=== PATIENT | female | born 1940 | race Caucasian/White ===

== ENCOUNTER → 2017-12-21 | Outpatient (CLI) | payer MEDICARE ==
[~2017-12-21] MED LIST: ALBU90OI INH; AMLO5 PO; AMOX500 PO; ASPI81CH PO; ASPI81EC PO; ATOR20 PO; CALMAGZIN PO; CEPH500 PO; CETI10 PO; CHOL10002; CODACE30 PO; ERYT.5TO OS; HYDACE5325 PO; HYDCHL12.5 PO; LAVAP17G PO; MULVITMIND PO; Mobic7.5 MG PO; Norco 5-325 Ta1 EACH PO; OXYACE5T PO; POTA10T PO; RXHYD5325 PO; SULTRIDS PO; Zithromax250 MG PO
== END ==
LOC: LAB SRC 09:36 → LAB SHORT 09:36
DX: E87.6 Hypokalemia (principal)
CPT/HCPCS: 84133

== ENCOUNTER 2018-01-26 07:51 | Emergency (ER) | payer MEDICARE ==
[~2018-01-26] VITALS: Ht 147.3 cm; Wt 54.4 kg
[2018-01-26] MEDS ORDERED: SPIR25 PO (08:08)
[2018-01-26] MEDS ORDERED: ALEN70 PO (08:09)
[2018-01-26] MEDS ORDERED: POLYETHYLENE G255 GM PO (08:11)
[2018-01-26] MEDS ORDERED: Norco 5-325 Ta1 EACH PO (08:45)
== END 2018-01-26 09:30 | disposition home or self-care (01) ==
LOC: ER 07:51
DX: S42.102A Fracture of unspecified part of scapula, left shoulder, initial encounter for closed fracture (principal); I10 Essential (primary) hypertension; Z79.899 Other long term (current) drug therapy; Z79.82 Long term (current) use of aspirin; Z87.891 Personal history of nicotine dependence; W19.XXXA Unspecified fall, initial encounter
CPT/HCPCS: 29105; 73030; 99284-25

== ENCOUNTER 2018-08-07 10:31 | Day surgery (SDC) | payer MEDICARE ==
[~2018-08-07] VITALS: Ht 142.2 cm; Wt 53.2 kg
[~2018-08-07 10:31] MED LIST changes: +(None)15 G1; +ALEN70 PO; +CHOL10002 PO; +Calcium-Magnes1 EAC6 PO; +FLONASE ALLERG9.9 ML; +POLYETHYLENE G255 GM PO; +SPIR25 PO; +ZYRTEC10 M1 PO
--- NOTE | 2018-08-07 12:06 | NUR ---
08/07/[address] NOTIFIED THAT PT. HAD VERBALIZED THAT HER LAST PREP SHE TOOK WAS YESTERDAY & FINISHED IT BY 1800 WITH INCLUSION OF HER WATER. PT. VERBALIZED THAT SHE WAS ALL CLEAR YESTERDAY SO DIDN'T DO OTHER PREP. PT. HAD VERBALIZED THAT THERE WAS TOO MUCH POWDER TO DRINK.
--- NOTE | 2018-08-07 16:12 | NUR ---
08/07/18 1612 Olivia Red PROCEDURE STARTED 1223 UNABLE TO ADVANCE SCOPE PROCEDURE STOPPED 1242 SCOPE CHANGED TO UPPER SCOPE (BLACK/YELLOW) AND RESTART 1246 CECUM WAS REACHED AT 1305 CASE ENDED AT 1310
== END 2018-08-07 13:40 | disposition home or self-care (01) ==
LOC: ORSCSDS 10:31
PROVIDERS: Internal Medicine Gastroenterology
PROC: 0DJD8ZZ Inspection of Lower Intestinal Tract, Via Natural or Artificial Opening Endoscopic (ICD-10-PCS; principal; 2018-08-07 11:45)
DX: D50.9 Iron deficiency anemia, unspecified (principal); K64.8 Other hemorrhoids; I10 Essential (primary) hypertension; Z79.82 Long term (current) use of aspirin; Z79.899 Other long term (current) drug therapy; Z87.891 Personal history of nicotine dependence
CPT/HCPCS: J2405; J7120

== ENCOUNTER 2018-10-09 07:52 | Day surgery (SDC) | payer MEDICARE, OTHER ==
[~2018-10-09] VITALS: Ht 142.2 cm; Wt 55.0 kg
== END 2018-10-09 10:00 | disposition home or self-care (01) ==
LOC: ORSCSDS 07:52
PROVIDERS: Internal Medicine Gastroenterology
PROC: 0DB68ZX Excision of Stomach, Via Natural or Artificial Opening Endoscopic, Diagnostic (ICD-10-PCS; principal; 2018-10-09 09:00)
PROC: 0DB98ZX Excision of Duodenum, Via Natural or Artificial Opening Endoscopic, Diagnostic (ICD-10-PCS; principal; 2018-10-09 09:00)
DX: D50.9 Iron deficiency anemia, unspecified (principal); K29.80 Duodenitis without bleeding; K20.9 Esophagitis, unspecified; K25.9 Gastric ulcer, unspecified as acute or chronic, without hemorrhage or perforation; K44.9 Diaphragmatic hernia without obstruction or gangrene; I10 Essential (primary) hypertension; J44.9 Chronic obstructive pulmonary disease, unspecified; Z83.71 Family history of colonic polyps; Z87.891 Personal history of nicotine dependence; Z79.82 Long term (current) use of aspirin; Z79.899 Other long term (current) drug therapy
CPT/HCPCS: J2704; J7120

== ENCOUNTER 2019-01-01 09:51 | Day surgery (SDC) | payer MEDICARE, OTHER ==
[~2019-01-01] VITALS: Ht 142.2 cm; Wt 121.0 kg
[2019-01-01] MEDS ORDERED: ATOR10 PO (10:43)
[2019-01-01] MEDS ORDERED: SPIR25 PO (10:43)
--- NOTE | 2019-01-01 10:49 | NUR ---
01/01/19 Susie9 Kina Gold ON THE MONITOR, PT UNSYPTOMATIC. STRIP PRINTED, MD MENENDEZ NOTIFIED. BMP DRAWN PRE PROCEDURE, EKG DONE. WILL NOTIFY MD SCHAFFER OF EKG AND STRIPS PRINTED.
[2019-01-01 10:58] LABS: Anion Gap 7 mmol/L (6-16); Blood Urea Nitrogen 14 mg/dL (8-24); Bun/Creatinine Ratio 20.7 (12.0-20.0); CO2, Blood 24 mmol/L (21-32); Chloride, Blood 106 mmol/L (98-108); Creatinine, Blood 0.68 mg/dL (0.40-1.00); Glomerular Filtration Rate >60 (60-); Glucose, Blood 89 mg/dL (70-99); Potassium, Blood 4.5 mmol/L (3.5-5.5); Sodium, Blood 137 mmol/L (136-145)
== END 2019-01-01 11:55 | disposition home or self-care (01) ==
LOC: ORSCSDS 09:51
PROVIDERS: Internal Medicine Gastroenterology
PROC: 0DB58ZX Excision of Esophagus, Via Natural or Artificial Opening Endoscopic, Diagnostic (ICD-10-PCS; principal; 2019-01-01 11:00)
DX: K22.70 Barrett's esophagus without dysplasia (principal); D50.9 Iron deficiency anemia, unspecified; Z87.11 Personal history of peptic ulcer disease; K29.80 Duodenitis without bleeding; K44.9 Diaphragmatic hernia without obstruction or gangrene; J44.9 Chronic obstructive pulmonary disease, unspecified; I10 Essential (primary) hypertension; E87.6 Hypokalemia; Z87.891 Personal history of nicotine dependence; Z79.82 Long term (current) use of aspirin; Z79.899 Other long term (current) drug therapy
CPT/HCPCS: 80048; 88305; 93005; 93010; J2704; J7120

== ENCOUNTER 2019-07-02 11:59 | Emergency (ER) | payer MEDICARE, OTHER ==
[~2019-07-02] VITALS: Ht 137.2 cm; Wt 55.3 kg
[~2019-07-02 11:59] MED LIST changes: +ATOR10 PO
== END 2019-07-02 14:44 | disposition home or self-care (01) ==
LOC: ER 11:59
DX: S32.039A Unspecified fracture of third lumbar vertebra, initial encounter for closed fracture (principal); I10 Essential (primary) hypertension; E78.5 Hyperlipidemia, unspecified; Z79.899 Other long term (current) drug therapy; Z79.82 Long term (current) use of aspirin; Z87.891 Personal history of nicotine dependence; W01.0XXA Fall on same level from slipping, tripping and stumbling without subsequent striking against object, initial encounter; Y92.002 Bathroom of unspecified non-institutional (private) residence as the place of occurrence of the external cause
CPT/HCPCS: 72100; 99283-25

== ENCOUNTER → 2019-10-29 | Outpatient (CLI) | payer MEDICARE, OTHER ==
[2019-11-04 13:40] LABS: Stool Occult Bld Immuno 1 Negative (NEGATIVE)
== END | disposition home or self-care (01) ==
LOC: LAB 20:00 → LAB SHORT 20:00
PROVIDERS: Nurse Practitioner Family
DX: D50.9 Iron deficiency anemia, unspecified (principal)
CPT/HCPCS: G0328

== ENCOUNTER 2020-11-15 07:09 | Day surgery (SDC) | payer MEDICARE, SELFPAY ==
[~2020-11-15] VITALS: Ht 139.7 cm; Wt 56.7 kg
[~2020-11-15 07:09] MED LIST changes: +Amlodipine Bes2.5 MG PO; +FAMO20 PO; +LOSA25 PO
[2020-11-15] MEDS ORDERED: OMEP20ER (07:22)
--- NOTE | 2020-11-15 07:34 | NUR ---
11/15/20 0734 Grazyna Salomon 1 TRY RIGHT HAND BLEW, BRUISES VERY EASILY, SECOND TRY RIGHT WRIST BRUISED INSTANTLY, RUNS GREAT
== END 2020-11-15 09:15 | disposition home or self-care (01) ==
LOC: ORSCSDS 07:09
PROVIDERS: Internal Medicine Gastroenterology
PROC: 0DB68ZX Excision of Stomach, Via Natural or Artificial Opening Endoscopic, Diagnostic (ICD-10-PCS; principal; 2020-11-15 08:30)
PROC: 0DB58ZX Excision of Esophagus, Via Natural or Artificial Opening Endoscopic, Diagnostic (ICD-10-PCS; principal; 2020-11-15 08:30)
PROC: 0DB98ZX Excision of Duodenum, Via Natural or Artificial Opening Endoscopic, Diagnostic (ICD-10-PCS; principal; 2020-11-15 08:30)
DX: D50.9 Iron deficiency anemia, unspecified (principal); K20.90 Esophagitis, unspecified without bleeding; K22.70 Barrett's esophagus without dysplasia; K44.9 Diaphragmatic hernia without obstruction or gangrene; K29.70 Gastritis, unspecified, without bleeding; E78.5 Hyperlipidemia, unspecified; I10 Essential (primary) hypertension; E66.9 Obesity, unspecified; Z68.31 Body mass index [BMI] 31.0-31.9, adult; Z79.82 Long term (current) use of aspirin; Z87.891 Personal history of nicotine dependence; Z79.899 Other long term (current) drug therapy
CPT/HCPCS: 88305; 88342; J0330; J0461; J2405; J2704; J7120

== ENCOUNTER 2023-12-19 08:18 | Day surgery (SDC) | payer OTHER ==
[~2023-12-19] VITALS: Ht 137.2 cm; Wt 50.4 kg
[~2023-12-19 08:18] MED LIST changes: +Balanced Salt Epinephrine Irrigation Solution 500 mL IR SCH; +Lidocaine HCl/Pf 1% 5 ML VIAL XX SCH; +Moxifloxacin HCL 0.5 MG/0.1 ML 0.4MLSYR RIGHTEYE SCH; +NS 500 ML IV ONE; +OMEP20ER; +PHENYLEPHRINE\\TROPICAMIDE\\TETRACAINE OPHTHALMIC DILATING SOLN RIGHTEYE PRN; +Povidone-Iodine 450 DROP/30 ML Solution RIGHTEYE SCH; +Triamcinolone Inj Susp 40 MG / ML 1ML Vial INJ SCH; +Triamcinolone Inj Susp 40 MG / ML 1ML Vial ONE
[2023-12-19] MEDS ORDERED: NS 500 ML IV ONE (08:51)
--- NOTE | 2023-12-19 08:51 | NUR ---
12/19/23 0851 Jia Whatley AT 0835 PLEWENDIEET AT 0826
[2023-12-19] MEDS ORDERED: Midazolam HCl 1MG / ML 2ML Vial ONE (09:19)
[2023-12-19] MEDS ORDERED: FentaNYL Citrate 50 MCG/ML 2 ML Injection ONE (09:19)
[2023-12-19] MEDS ORDERED: Tetracaine HCl 0.5% Opth Soln 15 ml RIGHTEYE ONE (09:33)
[2023-12-19 09:44] VITALS: BP 122/71
== END 2023-12-19 09:59 | disposition home or self-care (01) ==
LOC: ORSCSDS 08:18
PROVIDERS: Ophthalmology
PROC: 08RJ3JZ Replacement of Right Lens with Synthetic Substitute, Percutaneous Approach (ICD-10-PCS; principal; 2023-12-19 09:30)
DX: H25.811 Combined forms of age-related cataract, right eye (principal); Z96.1 Presence of intraocular lens; Z87.891 Personal history of nicotine dependence; I10 Essential (primary) hypertension; J44.9 Chronic obstructive pulmonary disease, unspecified; Z79.899 Other long term (current) drug therapy
CPT/HCPCS: 82947; J2250; J3010; J3301; J7040; V2632

== ENCOUNTER 2024-05-24 15:54 | Observation (INO) | payer OTHER ==
[~2024-05-24] VITALS: Ht 152.4 cm; Wt 68.0 kg
[~2024-05-24 15:54] MED LIST changes: -Balanced Salt Epinephrine Irrigation Solution 500 mL IR SCH; -Lidocaine HCl/Pf 1% 5 ML VIAL XX SCH; -Moxifloxacin HCL 0.5 MG/0.1 ML 0.4MLSYR RIGHTEYE SCH; -NS 500 ML IV ONE; -PHENYLEPHRINE\\TROPICAMIDE\\TETRACAINE OPHTHALMIC DILATING SOLN RIGHTEYE PRN; -Povidone-Iodine 450 DROP/30 ML Solution RIGHTEYE SCH; -Triamcinolone Inj Susp 40 MG / ML 1ML Vial INJ SCH; -Triamcinolone Inj Susp 40 MG / ML 1ML Vial ONE
[2024-05-24 19:20] LABS: BASOPHILS ABSOLUTE AUTO 0.05 K/mm3 (0.00-0.23); BASOPHILS PERCENT AUTO 1 % (0-2); EOSINOPHILS ABSOLUTE AUTO 0.03 K/mm3 (0.00-0.68); EOSINOPHILS PERCENT AUTO 0 % (0-6); Hematocrit 42.3 % (33.0-51.0); Hemoglobin 13.7 g/dL (11.5-16.0); IMMATURE GRAN ABSOLUTE AUTO 0.04 K/mm3 (0.00-0.10); IMMATURE GRAN PERCENT AUTO 1 % (0-1); LYMPHOCYTES ABSOLUTE AUTO 0.97 K/mm3 (0.84-5.20); LYMPHOCYTES PERCENT AUTO 11 % (21-46); MONOCYTES PERCENT AUTO 7 % (4-13); Mean Corpuscular HGB Conc 32.4 g/dL (31.5-36.5); Mean Corpuscular Volume 87 fL (80-100); Mean Platelet Volume 9.9 fL (9.1-12.4); NEUTROPHILS ABSOLUTE AUTO 7.08 K/mm3 (1.96-9.15); NEUTROPHILS PERCENT AUTO 81 % (41-73); Platelet Count 317 K/mm3 (150-400); RDW Coefficient Variation 13.7 % (11.7-14.2); RDW Standard Deviation 42.9 fL (35.1-46.3); Red Blood Cell Count 4.89 M/mm3 (3.80-5.20); White Blood Cell Count 8.77 K/mm3 (4.00-11.30)
[2024-05-24 19:42] LABS: Albumin, Blood 3.6 g/dL (3.4-5.0); Albumin/Globulin Ratio 0.8 (0.8-1.8); Bilirubin, Total 0.6 mg/dL (0.1-1.0); Bun/Creatinine Ratio 22.3 (12.0-20.0); Calcium, Blood 9.1 mg/dL (8.5-10.1); Creatinine, Blood 0.72 mg/dL (0.40-1.00); Globulin, Blood 4.3 g/dL (2.2-4.0); Total Protein, Blood 7.9 g/dL (6.4-8.2)
[2024-05-24] MEDS ORDERED: Ondansetron HCl 2 MG / ML 2ML Vial IV PRN (20:45)
[2024-05-24] MEDS ORDERED: FLU VACC TS2024-25(6MOS UP)/PF 45 MCG/0.5 ML SYRINGE IM ONE (20:45)
[2024-05-24] MEDS ORDERED: Albuterol 2.5 MG/3 ML VIAL INH PRN (20:55)
[2024-05-24] MEDS ORDERED: Famotidine 20 MG Tab PO SCH (21:00)
[2024-05-24] MEDS ORDERED: ATOR20 PO (21:42)
[2024-05-24 21:53] VITALS: BP 167/79
[2024-05-24] MEDS ORDERED: OxyCODONE 5 mg/Acetamin 325 mg TABLET PO PRN (22:30)
--- NOTE | 2024-05-25 03:04 | NUR ---
SHIFT SUMMARY 84 YR F Admitted on 05/24/24. FULL CODE. PT IS A&O X 4 AND MOSTLY INDEPENDANT. SHE NEEDS A LITTLE HELP GETTING OUT OF BED DUE TO PAIN CAUSED BY RIB FX'S ON THE RIGHT SIDE. ONCE SHE IS UP SHE IS STEADY ON HER FEET W/ A FWW. SHE STATES SHE GETS LEG CRAMPS AT NIGHT AND THE ONLY THING THAT HELPS IS TO GET UP AND WALK AROUND THE BED. AN ORDER FOR PERCOCET WAS OBTAINED FOR PAIN AND APPEARS TO HAVE BEEN AFFECTIVE PT FELL ASLEEP SHORTLY AFTER TAKING IT AND HAS BEEN ASLEEP SINCE. PT CALLS APPROPRIATELY AND USES THE BEDSIDE COMODE. PLAN IS FOR MRI IN THE A.M. TO CHECK STATUS OF SMALL, RIGHT PNEUMOTHORAX. BED IN LOW POSITION AND CALL LIGHT IN REACH.
[2024-05-25 03:49] VITALS: BP 156/75
[2024-05-25] MEDS ORDERED: Spironolactone 25 MG Tab PO SCH (06:00)
[2024-05-25] MEDS ORDERED: Atorvastatin 10 MG Tab PO SCH (06:00)
[2024-05-25 07:26] VITALS: BP 154/96
[2024-05-25] MEDS ORDERED: Losartan Potassium 25 MG Tab PO SCH (09:00)
[2024-05-25] MEDS ORDERED: Fluticasone 0.05% Nasal Spray SCH (09:00)
[2024-05-25] MEDS ORDERED: Omeprazole 20 MG CapCR PO SCH (09:00)
[2024-05-25] MEDS ORDERED: AmLODIPine Besylate 5 MG Tab PO SCH (09:00)
[2024-05-25] MEDS ORDERED: Aspirin 81 MG Chew PO SCH (09:00)
[2024-05-25] MEDS ORDERED: Azithromycin 250 MG Tab PO ONE (10:05)
[2024-05-25] MEDS ORDERED: VISBIOME 112.51 EACH PO (12:15)
[2024-05-25] MEDS ORDERED: AZIT250 PO (12:15)
[2024-05-25] MEDS ORDERED: Percocet 5-3251 EACH PO (12:15)
--- NOTE | 2024-05-25 15:02 | NUR ---
DISCHARGE NOTE PT A&OX4 AND ANSWERS QUESTIONS APPROPRIATELY. PT PNEUMOTHORAX RESOLVED ENOUGH FOR D/C. PT VSS, NO COMPLAINTS OF CP/PRESSURE OR SOB. DISCHARGE ORDER OBTAINED, PT EDUCATED ON D/C EDUCATION AND VERBALIZES UNDERSTANDING. PT D/JUVENAL HOME VIA W/C. ALL PERSONAL ITEMS W/ PT AND OOR. PT DISCHARGED HOME.
== END 2024-05-25 14:47 | disposition home or self-care (01) ==
LOC: ER 15:54 → MEDS 15:55
PROVIDERS: Emergency Medicine; ADMIT Internal Medicine
DX: S27.0XXA Traumatic pneumothorax, initial encounter (principal); S22.41XA Multiple fractures of ribs, right side, initial encounter for closed fracture; W18.09XA Striking against other object with subsequent fall, initial encounter; J98.11 Atelectasis; R26.89 Other abnormalities of gait and mobility; I10 Essential (primary) hypertension; E78.5 Hyperlipidemia, unspecified; K21.9 Gastro-esophageal reflux disease without esophagitis; K44.9 Diaphragmatic hernia without obstruction or gangrene; M19.90 Unspecified osteoarthritis, unspecified site; Z87.891 Personal history of nicotine dependence; Z79.82 Long term (current) use of aspirin; Z79.899 Other long term (current) drug therapy
CPT/HCPCS: 71045; 71046; 71250; 80053; 84484; 85025; 93005; 93010; 99285-25; A9270; G0378

== ENCOUNTER 2024-07-18 10:46 | Emergency (ER) | payer OTHER ==
[~2024-07-18] VITALS: Ht 137.2 cm; Wt 49.4 kg
[~2024-07-18 10:46] MED LIST changes: +AZIT250 PO; +Percocet 5-3251 EACH PO; +VISBIOME 112.51 EACH PO
[2024-07-18 11:37] LABS: BASOPHILS ABSOLUTE AUTO 0.08 K/mm3 (0.00-0.23); BASOPHILS PERCENT AUTO 1 % (0-2); EOSINOPHILS ABSOLUTE AUTO 0.07 K/mm3 (0.00-0.68); EOSINOPHILS PERCENT AUTO 1 % (0-6); Hemoglobin 13.1 g/dL (11.5-16.0); IMMATURE GRAN ABSOLUTE AUTO 0.01 K/mm3 (0.00-0.10); IMMATURE GRAN PERCENT AUTO 0 % (0-1); LYMPHOCYTES ABSOLUTE AUTO 1.39 K/mm3 (0.84-5.20); LYMPHOCYTES PERCENT AUTO 17 % (21-46); MONOCYTES ABSOLUTE AUTO 0.71 K/mm3 (0.16-1.47); MONOCYTES PERCENT AUTO 9 % (4-13); Mean Corpuscular HGB 27.8 pg (26.0-34.0); Mean Corpuscular Volume 87 fL (80-100); Mean Platelet Volume 9.6 fL (9.1-12.4); NEUTROPHILS ABSOLUTE AUTO 5.96 K/mm3 (1.96-9.15); NEUTROPHILS PERCENT AUTO 73 % (41-73); Platelet Count 317 K/mm3 (150-400); RDW Coefficient Variation 15.6 % (11.7-14.2); RDW Standard Deviation 50.1 fL (35.1-46.3); Red Blood Cell Count 4.71 M/mm3 (3.80-5.20); White Blood Cell Count 8.22 K/mm3 (4.00-11.30)
[2024-07-18 12:06] LABS: Albumin, Blood 3.1 g/dL (3.4-5.0); Albumin/Globulin Ratio 0.7 (0.8-1.8); Bilirubin, Total 0.5 mg/dL (0.1-1.0); Bun/Creatinine Ratio 19.9 (12.0-20.0); Calcium, Blood 9.1 mg/dL (8.5-10.1); Creatinine, Blood 0.55 mg/dL (0.40-1.00); Globulin, Blood 4.4 g/dL (2.2-4.0); Potassium, Blood 4.1 mmol/L (3.5-5.5); Total Protein, Blood 7.5 g/dL (6.4-8.2)
[2024-07-18] MEDS ORDERED: Percocet 5-3251 EACH PO (13:11)
[2024-07-18 14:53] VITALS: BP 159/93
== END 2024-07-18 14:53 | disposition home or self-care (01) ==
LOC: ER 10:46
PROVIDERS: Student in an Organized Health Care Education/Training Program
DX: R07.81 Pleurodynia (principal); S42.201D Unspecified fracture of upper end of right humerus, subsequent encounter for fracture with routine healing; S22.41XD Multiple fractures of ribs, right side, subsequent encounter for fracture with routine healing; I10 Essential (primary) hypertension; Z87.891 Personal history of nicotine dependence; W19.XXXD Unspecified fall, subsequent encounter
CPT/HCPCS: 71046; 80053; 83880; 84484; 85025; 93005; 93010; 99284-25

== ENCOUNTER 2025-05-24 19:28 | Emergency (ER) | payer OTHER ==
[~2025-05-24] VITALS: Ht 137.2 cm; Wt 45.8 kg
[2025-05-24 20:12] LABS: BASOPHILS ABSOLUTE AUTO 0.10 K/mm3 (0.00-0.23); BASOPHILS PERCENT AUTO 1 % (0-2); EOSINOPHILS ABSOLUTE AUTO 0.20 K/mm3 (0.00-0.68); EOSINOPHILS PERCENT AUTO 2 % (0-6); Hematocrit 42.3 % (33.0-51.0); Hemoglobin 13.5 g/dL (11.5-16.0); IMMATURE GRAN ABSOLUTE AUTO 0.11 K/mm3 (0.00-0.10); IMMATURE GRAN PERCENT AUTO 1 % (0-1); LYMPHOCYTES ABSOLUTE AUTO 2.50 K/mm3 (0.84-5.20); LYMPHOCYTES PERCENT AUTO 24 % (21-46); MONOCYTES ABSOLUTE AUTO 0.79 K/mm3 (0.16-1.47); MONOCYTES PERCENT AUTO 8 % (4-13); Mean Corpuscular HGB Conc 31.9 g/dL (31.5-36.5); Mean Corpuscular Volume 83 fL (80-100); NEUTROPHILS ABSOLUTE AUTO 6.67 K/mm3 (1.96-9.15); NEUTROPHILS PERCENT AUTO 64 % (41-73); NRBC ABSOLUTE 0.00 K/mm3 (0.00-0.02); NRBC Auto 0.0 /100 WBC (0.0-0.2); RDW Coefficient Variation 14.5 % (11.7-14.2); RDW Standard Deviation 44.0 fL (35.1-46.3)
[2025-05-24 20:14] LABS: Alanine Aminotransfer (ALT/SGP 23.0 U/L (12-78); Albumin, Blood 3.6 g/dL (3.4-5.0); Albumin/Globulin Ratio 0.8 (0.8-1.8); Anion Gap 10.0 mmol/L (3-11); Aspartate Aminotrans (AST/SGOT 26.0 U/L (12-37); Bilirubin, Total 0.3 mg/dL (0.1-1.0); Blood Urea Nitrogen 18.0 mg/dL (8-24); CO2, Blood 29.0 mmol/L (21-32); Calcium, Blood 9.4 mg/dL (8.5-10.1); Chloride, Blood 99.0 mmol/L (98-108); Creatinine, Blood 0.61 mg/dL (0.40-1.00); Globulin, Blood 4.5 g/dL (2.2-4.0); Glucose, Blood 124.0 mg/dL (70-99); Potassium, Blood 4.4 mmol/L (3.5-5.5); Sodium, Blood 134.0 mmol/L (136-145); Total Protein, Blood 8.1 g/dL (6.4-8.2)
[2025-05-24 20:19] LABS: Platelet Count 381 K/mm3 (150-400)
[2025-05-24 20:22] LABS: Influenza A, PCR NEGATIVE (NEGATIVE); Influenza B, PCR NEGATIVE (NEGATIVE); Resp Syncytial Virus, PCR NEGATIVE (NEGATIVE); SARS-Cov-2 (COVID-19) PCR, MMC NEGATIVE (NEGATIVE)
[2025-05-24] MEDS ORDERED: Ondansetron HCl 2 MG / ML 2ML Vial IV ONE (21:15)
[2025-05-24] MEDS ORDERED: NS 1,000 ML IV SCH (21:15)
[2025-05-24] MEDS ORDERED: FentaNYL Citrate 50 MCG/ML 2 ML Injection IV ONE (21:15)
[2025-05-25] MEDS ORDERED: Pantoprazole Sodium 40 MG Injection IV ONE (00:20)
[2025-05-25 01:00] VITALS: BP 152/91
[2025-05-25] MEDS ORDERED: PANT40 PO (01:03)
== END 2025-05-25 01:19 | disposition home or self-care (01) ==
LOC: ER 19:28
PROVIDERS: Physician Assistant
DX: K44.9 Diaphragmatic hernia without obstruction or gangrene (principal); E87.1 Hypo-osmolality and hyponatremia; I10 Essential (primary) hypertension; E78.5 Hyperlipidemia, unspecified; Z87.891 Personal history of nicotine dependence; Z79.82 Long term (current) use of aspirin; Z79.899 Other long term (current) drug therapy
CPT/HCPCS: 71046; 71260; 74177; 80053; 83880; 84484; 85025; 87637; 93005; 93010; 96361; 96374; 96375; 99284-25; J2405; J2470; J3010; J7030; Q9967